=== PATIENT | female | born 1960 | race African-American/Black ===

== ENCOUNTER 2016-06-09 10:20 | Emergency (ER) | payer MEDICAID ==
[~2016-06-09] VITALS: Ht 167.6 cm; Wt 83.9 kg
[~2016-06-09 10:20] MED LIST: ALBUTEROL SULF8.5 GM INH; HYDROCHLOROTH12.5 M2 ORAL; HYDROCHLOROTHIA25 MG ORAL; IBUPROFEN600 MG ORAL; NORCO 5-325 TA1 EACH ORAL; SYNTHROID125 MCG ORAL; SYNTHROID25 MCG ORAL; ZITHROMAX250 MG ORAL
[2016-06-09 10:45] VITALS: BP 145/64
[2016-06-09] MEDS ORDERED: HYDROCHLOROTH12.5 M2 ORAL (10:51)
[2016-06-09] MEDS ORDERED: PREDNISONE20 MG ORAL (10:51)
[2016-06-09] MEDS ORDERED: PROMETHAZINE-D118 ML ORAL (10:51)
[2016-06-09] MEDS ORDERED: ALBUTEROL SULF8.5 GM INH (10:51)
[2016-06-09] MEDS ORDERED: Ipratropium 0.02% Inh Soln 2.5ml UD HHN ONE (11:00)
[2016-06-09] MEDS ORDERED: Albuterol ud Inhalation HHN ONE (11:00)
[2016-06-09 11:25] VITALS: BP 145/64
--- NOTE | 2016-06-09 14:14 | Emergency Room Report ---
History of Present Illness General Chief Complaint: Upper Respiratory Illness Source: Patient Present Illness HPI 55-year-old female presents to ED with cough x4 days. States the cough is productive with greenish phlegm. Notes occasional chills. Denies fever. Denies earache or sore throat. Denies history of asthma or smoking. Denies sick contacts or recent travel. denies any other associated symptoms Allergies: Coded Allergies: HYDROMORPHONE (Verified Allergy, Intermediate, 06/19/14) Patient History Past Medical History: HTN Past Surgical History: none Pertinent Family History: none Social History: Denies: alcohol use, drug use, smoking Now: No Immunizations: UTD Reviewed Nursing Documentation: PMH: Agreed, PSxH: Agreed Nursing Documentation-PMH Past Medical History: No History, Except For Hx Hypertension: Yes Hx Diabetes: No - hypothyroid Review of Systems All Other Systems: negative except mentioned in HPI Physical Exam Vital Signs Date Time Temp Pulse Resp B/P Pulse Ox O2 Delivery O2 Flow Rate FiO2 06/09/16 10:32 99.1 86 18 145/64 98 Room Air 06/09/16 11:15 21 Sp02 EP Interpretation: reviewed, normal General Appearance: no apparent distress, alert, GCS 15, non-toxic Head: normocephalic Eyes: bilateral eye PERRL, bilateral eye normal inspection ENT: hearing grossly normal, normal pharynx, no angioedema, normal voice Neck: normal inspection Respiratory: chest non-tender, lungs clear, normal breath sounds, speaking full sentences Cardiovascular #1: regular rate, rhythm, no edema Gastrointestinal: normal bowel sounds, non tender, soft, non-distended, no guarding, no rebound Rectal: deferred Genitourinary: no CVA tenderness Musculoskeletal: normal inspection Neurologic: alert, oriented x3, responsive, motor strength/tone normal, sensory intact, speech normal Psychiatric: normal inspection Skin: normal inspection Lymphatic: normal inspection Medical Decision Making Diagnostic Impression: Primary Impression: Bronchitis ER Course Hospital Course 55-year-old female presents to ED complaining of cough Differential diagnoses include: URI, bronchitis, asthma/COPD, pneumonia Clinical course Patient placed on stretcher. After initial history and physical I ordered nebulizer treatment. Upon reassessment patient states cough and symptoms have improved. Findings consistent with bronchitis. Diagnosis - bronchitis Stable and discharged home with prescriptions for Rx prednisone, cough syrup, albuterol. Instructed to followup with PMD. Return to ED if symptoms recur or worsen Last Vital Signs Date Time Temp Pulse Resp B/P Pulse Ox O2 Delivery O2 Flow Rate FiO2 06/09/16 11:34 90 19 100 Room Air 21 06/09/16 11:25 99.1 145/64 Status: improved Disposition: HOME, SELF-CARE Condition: Stable Scripts Hydrochlorothiazide* (HYDROCHLOROTHIAZIDE*) 12.5 Mg Capsule 12.5 MG ORAL DAILY, #30 CAP Prov: CHARISSA LIZARRAGA M.D. 06/09/16 D-Methorphan Hb/Prometh Hcl* (PROMETHAZINE-DM SYRUP*) 118 Ml Syrup 5 ML ORAL Q4H Y for For Cough, #118 ML 0 Refills Prov: CHARISSA LIZARRAGA M.D. 06/09/16 Prednisone* (PREDNISONE*) 20 Mg Tablet 40 MG ORAL DAILY, #10 TAB Prov: CHARISSA LIZARRAGA M.D. 06/09/16 Albuterol Sulfate* (ALBUTEROL SULFATE MDI*) 8.5 Gm Hfa.aer.ad 2 PUFF INH Q4H Y for cough/wheezing, #1 EA 0 Refills Prov: CHARISSA LIZARRAGA M.D. 06/09/16 Patient Instructions: Acute Bronchitis, [id number] CHARISSA LIZARRAGA M.D. Jun 09, 2016 14:14
== END 2016-06-09 11:25 | disposition home or self-care (01) ==
LOC: EMR 10:44
DX: J40 Bronchitis, not specified as acute or chronic (principal); I10 Essential (primary) hypertension; E03.9 Hypothyroidism, unspecified; Z88.6 Allergy status to analgesic agent
CPT/HCPCS: 94640; 94664; 99284

== ENCOUNTER 2017-05-16 11:17 | Emergency (ER) | payer BC, MEDICAID ==
[~2017-05-16] VITALS: Ht 167.6 cm; Wt 81.6 kg
[~2017-05-16 11:17] MED LIST changes: +PREDNISONE20 MG ORAL; +PROMETHAZINE-D118 ML ORAL
[2017-05-16] MEDS ORDERED: Tylenol #3 tab (300mg/30mg) ORAL ONE (12:00)
[2017-05-16] MEDS ORDERED: Dexamethasone 4mg/ml vial IM ONE (12:15)
[2017-05-16] MEDS ORDERED: Ketorolac 60mg Inj IM ONE (12:30)
[2017-05-16 12:31] VITALS: BP 157/86
[2017-05-16] MEDS ORDERED: CLINDAMYCIN HC300 MG ORAL (12:38)
[2017-05-16] MEDS ORDERED: ACETAMINOPHEN-1 EAC1 ORAL (12:38)
[2017-05-16] MEDS ORDERED: PREDNISONE20 MG ORAL (12:38)
[2017-05-16 12:57] VITALS: BP 157/86
--- NOTE | 2017-05-19 21:11 | Emergency Room Report ---
History of Present Illness General Chief Complaint: Toothache Source: Patient, Medical Record Present Illness HPI Patient presents with left upper facial redness Patient reports pain to the area with touch She reports that she was recently seen by her dentist Patient also has a specialist however the specialist is not very close and the patient presents here for the pain Patient reports that she is on amoxicillin Denies any trismus Denies any fevers or chills denies any neck pain or photophobia Patient had recent dental extraction left upper dental region Denies any shortness of breath Allergies: Coded Allergies: HYDROMORPHONE (Verified Allergy, Intermediate, 06/19/14) Patient History Past Medical History: see triage record Pertinent Family History: none Reviewed Nursing Documentation: PMH: Agreed, PSxH: Agreed Nursing Documentation-PMH Past Medical History: No History, Except For Hx Hypertension: Yes Hx Diabetes: No - hypothyroid Review of Systems All Other Systems: negative except mentioned in HPI Physical Exam Vital Signs Date Time Temp Pulse Resp B/P (MAP) Pulse Ox O2 Delivery O2 Flow Rate FiO2 05/16/17 11:33 98.8 87 18 157/86 95 Room Air Sp02 EP Interpretation: reviewed, normal General Appearance: no apparent distress Head: normocephalic, atraumatic Eyes: bilateral eye PERRL, bilateral eye EOMI ENT: other - Patient has evidence of swelling to the left upper maxillary region, there is also dental decay and gingival erythema in the region of dental #13/14. Airway is patent no stridor Neck: full range of motion, supple Respiratory: lungs clear, normal breath sounds Cardiovascular #1: regular rate, rhythm Gastrointestinal: soft Musculoskeletal: normal inspection Neurologic: alert, oriented x3, responsive Skin: other - Swelling is noted above Lymphatic: no adenopathy Medical Decision Making Diagnostic Impression: Primary Impression: dental abscess ER Course Patient has evidence of dental cellulitis/abscess, she reports that her twin sister was given steroid shot which helped her and is requesting the same, patient also requesting injection of Toradol Patient discussed regarding the importance of following up with her dental specialist Patient does not appear septic or toxic Antibiotic is changed to clindamycin The patient requires close followup Last Vital Signs Date Time Temp Pulse Resp B/P (MAP) Pulse Ox O2 Delivery O2 Flow Rate FiO2 05/16/17 12:57 98.8 18 157/86 95 Room Air 05/16/17 11:33 87 Status: improved Disposition: HOME, SELF-CARE Condition: Improved Scripts Acetaminophen With Codeine (T#3) (TYLENOL #3 TAB*) Y Tab 1 TAB ORAL Q8H Y for For Pain, #10 TAB Prov: MAGNO EDGAR D.O. 05/16/17 Clindamycin Hcl (CLINDAMYCIN HCL) 300 Mg Capsule 300 MG ORAL THREE TIMES A DAY, #30 CAP Prov: MAGNO EDGAR D.O. 05/16/17 Prednisone* (PREDNISONE*) 20 Mg Tablet 20 MG ORAL BID, #10 TAB Prov: MAGNO EDGAR D.O. 05/16/17 Referrals: NOT CHOSEN IPA/MD,REFERRING Patient Instructions: Dental Abscess, [id number] Additional Instructions: Patient is provided with the discharge instructions notified to follow up with primary doctor in the next 2-3 days otherwise return to the er with any worsening symptoms. Please note that this report is being documented using DRAGON technology. This can lead to erroneous entry secondary to incorrect interpretation by the dictating instrument. MAGNO EDGAR D.O. May 19, 2017 21:11
== END 2017-05-16 12:58 | disposition home or self-care (01) ==
LOC: EMR 12:45
DX: K04.7 Periapical abscess without sinus (principal); I10 Essential (primary) hypertension; E03.9 Hypothyroidism, unspecified
CPT/HCPCS: 96372; 99284; J1100

== ENCOUNTER 2017-07-04 11:05 | Emergency (ER) | payer BC, MEDICAID ==
[~2017-07-04] VITALS: Ht 167.6 cm; Wt 81.6 kg
[~2017-07-04 11:05] MED LIST changes: +ACETAMINOPHEN-1 EAC1 ORAL; +CLINDAMYCIN HC300 MG ORAL
[2017-07-04 12:15] VITALS: BP 156/83
--- NOTE | 2017-07-04 12:22 | Emergency Room Report ---
History of Present Illness General Chief Complaint: Toothache Source: Patient, Medical Record Present Illness HPI 56 yo female patient presents to ER complaining of tooth pain x 4days. Patient reports hx of similar problems, reports seen by dentist for followup. Reports previous symptoms resoled, infection returned to left upper gum, reports drained at home. Requesting pain medication. Denies active draining. Denies fever, chest pain, SOB, abdominal pain. Denies trismus, neck pain. Denies vision changes, ear pain, problems with eating, sore throat. Reports one tooth extraction previous performed, reports she is scheduled to have another removed when infections resolved. Reports side effects with previous Clindamycin use. Allergies: Coded Allergies: HYDROMORPHONE (Verified Allergy, Intermediate, 06/19/14) Patient History Past Medical History: see triage record Reviewed Nursing Documentation: PMH: Agreed; PSxH: Agreed Nursing Documentation-PMH Past Medical History: No History, Except For Hx Hypertension: Yes Hx Diabetes: No - hypothyroid Review of Systems All Other Systems: negative except mentioned in HPI Physical Exam Vital Signs Date Time Temp Pulse Resp B/P (MAP) Pulse Ox O2 Delivery O2 Flow Rate FiO2 07/04/17 11:47 98.4 77 18 156/83 95 Room Air 98.4 Sp02 EP Interpretation: reviewed, normal General Appearance: well appearing, no apparent distress, alert, GCS 15, non- toxic Head: normocephalic, atraumatic Eyes: bilateral eye normal inspection, bilateral eye PERRL ENT: hearing grossly normal, normal pharynx, no angioedema, normal voice, TMs + canals normal, uvula midline, moist mucus membranes, other - <1cm lesion on gum over teeth #11-12, mild edema, no erythema, no drainage, no pus expressible , TTP, dental caries present Neck: full range of motion Respiratory: lungs clear, normal breath sounds, no rhonchi, no respiratory distress, no accessory muscle use, no wheezing, speaking full sentences Cardiovascular #1: regular rate, rhythm, no edema Musculoskeletal: back normal, digits/nails normal, gait/station normal, normal range of motion, non-tender Neurologic: alert, oriented x3, responsive, motor strength/tone normal, sensory intact Psychiatric: mood/affect normal Skin: other - TTP over left cheeck over left upper gum, no erythema, mild edema Lymphatic: no adenopathy Medical Decision Making PA Attestation Dr. Mason is my supervising Physician whom patient management has been discussed with. Diagnostic Impression: Primary Impression: Dental abscess ER Course Pt. presents to the ED c/o dental infection. Ddx considered but are not limited to cellulitis, abscess, dental caries, gingivitis. Does not require imaging at this time. Vital signs: are WNL, pt. is afebrile. Elevated BP, patient has hx of HTN, taking medications. F/u with PCP. ED INTERVENTIONS: CURES reports, no pain medication refills this month. Toradol for pain in ER. Nontoxic appearing, speaking full sentences, no active draining, mild edema, no trismus or vision changes. Patient requesting Ibuprofen for pain. Will provide abx for infection. Prednisone for inflammation. F/u with PCP and dentist for further treatment. DISCHARGE: -Rx provided for Amoxicillin -Rx provided for Ibuprofen. -Rx provided for Prednisone At this time pt. is stable for d/c to home. Patient is resting comfortably, in no acute distress, nontoxic appearing, talking and smiling without difficulty. Will provide printed patient care instructions and any necessary prescriptions. Care plan and follow up instructions have been discussed with the patient prior to discharge. Patient instructed to follow-up with primary care provider in 2 - 3 days. Followup with dentist. Patient questions asked and answered. Patient reports understanding and agreement to treatment plan. ER precautions given. Patient instructed to return to ER immediately for any new or worsening of symptoms including but not limited to fever, worsening of pain symptoms, worsening of erythema, red streaking. Last Vital Signs Date Time Temp Pulse Resp B/P (MAP) Pulse Ox O2 Delivery O2 Flow Rate FiO2 07/04/17 11:47 98.4 77 18 156/83 95 Room Air 98.4 Disposition: HOME, SELF-CARE Condition: Stable Scripts Ibuprofen* (MOTRIN*) 600 Mg Tablet 600 MG ORAL Q8H PRN for For Pain, #30 TAB 0 Refills Prov: Nic Gotti.A. 07/04/17 Prednisone* (PREDNISONE*) 20 Mg Tablet 40 MG ORAL DAILY for 5 Days, #10 TAB Prov: Nic Gotti.A. 07/04/17 Amoxicillin* (AMOXIL*) 500 Mg Capsule 500 MG ORAL EVERY 8 HOURS for 7 Days, #21 CAP Prov: Nic Gotti 07/04/17 Patient Instructions: Dental Abscess, [id number], Dental Caries, [id number] , Dental Extraction Additional Instructions: Followup with primary care provider in 2-3 days. Followup with dentist for close outpatient followup in 2-3 days. Take medications as directed. Patient questions asked and answered. ER precautions given, patient instructed to return to ER immediately for any new or worsening of symptoms. Nic Gotti Jul 04, 2017 12:22
[2017-07-04] MEDS ORDERED: AMOXICILLIN500 MG ORAL (12:29)
[2017-07-04] MEDS ORDERED: PREDNISONE20 MG ORAL (12:29)
[2017-07-04] MEDS ORDERED: ACETAMINOPHEN-1 EAC1 ORAL (12:29)
[2017-07-04] MEDS ORDERED: Ketorolac 30mg Inj IM ONE (12:30)
[2017-07-04] MEDS ORDERED: IBUPROFEN600 MG ORAL (12:35)
[2017-07-04 13:10] VITALS: BP 156/83
== END 2017-07-04 12:45 | disposition home or self-care (01) ==
LOC: EMR 12:17
DX: K04.7 Periapical abscess without sinus (principal); I10 Essential (primary) hypertension
CPT/HCPCS: 96372; 99284; J1885

== ENCOUNTER 2017-07-30 12:40 | Emergency (ER) | payer MEDICAID, MEDICARE ==
[~2017-07-30] VITALS: Ht 167.6 cm; Wt 81.6 kg
[~2017-07-30 12:40] MED LIST changes: +AMOXICILLIN500 MG ORAL
[2017-07-30] MEDS ORDERED: NORVASC10 MG ORAL (13:40)
[2017-07-30] MEDS ORDERED: CYCLOBENZAPRINE10 MG ORAL (14:06)
[2017-07-30] MEDS ORDERED: TRAMADOL HCL50 MG ORAL (14:06)
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
[2017-07-30 15:09] VITALS: BP 132/74
== END 2017-07-30 15:10 | disposition home or self-care (01) ==
LOC: EMR 14:35
DX: M54.5 Low back pain (principal); V43.52XA Car driver injured in collision with other type car in traffic accident, initial encounter; Y92.410 Unspecified street and highway as the place of occurrence of the external cause; I10 Essential (primary) hypertension
CPT/HCPCS: 99284; J8540

== ENCOUNTER 2018-07-12 18:49 | Emergency (ER) | payer MEDICARE, MEDICAID ==
[~2018-07-12] VITALS: Ht 167.6 cm; Wt 81.6 kg
[~2018-07-12 18:49] MED LIST changes: +CYCLOBENZAPRINE10 MG ORAL; +LIDODERM700 M1 TOPIC; +NORVASC10 MG ORAL; +ROBAXIN500 MG PO; +TRAMADOL HCL50 MG ORAL
--- NOTE | 2018-07-12 18:53 | NUR ---
ED Nurse Note: not in the waiting room upon being called for triage
[2018-07-12 19:03] VITALS: BP 153/82
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
[2018-07-12] MEDS ORDERED: LEVOTHYROXINE125 MCG ORAL (19:22)
[2018-07-12] MEDS ORDERED: MUPIROCIN15 GM TOPIC (19:22)
[2018-07-12] MEDS ORDERED: CEPHALEXIN500 MG ORAL (19:22)
[2018-07-12] MEDS ORDERED: Bacitracin Oint UD TOPIC ONE (19:30)
[2018-07-12 19:48] VITALS: BP 153/82
--- NOTE | 2018-07-12 19:48 | NUR ---
ER DISCHARGE NOTE: Patient is cleared to be discharged per Jeanmarie Frye. Pt is A/O x 4 on room air with stable vital signs. Pt was given D/C and prescription instructions and was able to verbalize understanding. Pt's ID band removed. Pt is able to ambulate with steady gait and took all belongings.
== END 2018-07-12 19:48 | disposition home or self-care (01) ==
LOC: EMR 19:38
DX: T25.211A Burn of second degree of right ankle, initial encounter (principal); X08.8XXA Exposure to other specified smoke, fire and flames, initial encounter; Y92.9 Unspecified place or not applicable; R60.0 Localized edema; Z76.0 Encounter for issue of repeat prescription; E03.9 Hypothyroidism, unspecified; I10 Essential (primary) hypertension
CPT/HCPCS: 99282

== ENCOUNTER 2019-06-25 12:53 | Emergency (ER) | payer BC, MEDICAID ==
[~2019-06-25] VITALS: Ht 167.6 cm; Wt 90.7 kg
[~2019-06-25 12:53] MED LIST changes: +CEPHALEXIN500 MG ORAL; +LEVOTHYROXINE125 MCG ORAL; +MUPIROCIN15 GM TOPIC
--- NOTE | 2019-06-25 13:10 | NUR ---
ED Nurse Note: ambulated in to ED due to headache and concern about her high BP. Also c/o swelling on bilateral feet. Pt states that she was running after her dog and she feels like her BP went very high. Breathing normal/even/unlabored. Skin warm/dry/intact. NAD noted. A/OX4.
[2019-06-25] MEDS ORDERED: Metoclopramide 10mg/2ml Inj IVP ONE (13:30)
[2019-06-25] MEDS ORDERED: Acetaminophen 500mg (ES) tab ORAL ONE (13:30)
[2019-06-25 13:36] VITALS: BP 151/78
[2019-06-25 13:51] LABS: BASOPHILS % (AUTO) 0.8 % (0.0-2.0); EOSINOPHILS % (AUTO) 2.9 % (0.0-3.0); HEMATOCRIT 36.8 % (37.0-47.0); MEAN CORPUSCULAR VOLUME 85 FL (80-99); MONOCYTES % (AUTO) 7.3 % (1.0-10.0); NEUTROPHILS % (AUTO) 59.1 % (45.0-75.0); PLATELET COUNT 257 K/UL (150-450); RED BLOOD COUNT 4.35 M/UL (4.20-5.40); RED CELL DISTRIBUTION WIDTH 11.9 % (11.6-14.8); WHITE BLOOD COUNT 6.4 K/UL (4.8-10.8)
[2019-06-25 14:05] LABS: ANION GAP 10 mmol/L (5-15); BLOOD UREA NITROGEN 17 mg/dL (7-18); CARBON DIOXIDE 30 MMOL/L (21-32); CHLORIDE 106 MMOL/L (98-107); POTASSIUM 3.8 MMOL/L (3.5-5.1); SODIUM 146 MMOL/L (136-145)
--- NOTE | 2019-06-25 14:07 | Emergency Room Report ---
History of Present Illness General Chief Complaint: Headache Source: Patient Present Illness HPI 58-year-old female presents ED for evaluation of headache. Started today. States that when her blood pressure gets high she gets a headache. Dull, frontal, 7 out of 10, nonradiating. Denies photophobia or blurry vision. Denies neck stiffness. Denies fevers or chills. Denies cough. States that her legs are also swollen. States she takes losartan/hydrochlorothiazide. Denies chest pain. No other aggravating relieving factors. Denies any other associated symptoms COVID-19 risk:Contact w/high r: No COVID-19 risk:Travel to affect: No Has patient experienced peraza: No Allergies: Coded Allergies: HYDROMORPHONE (Verified Allergy, Intermediate, 06/19/14) Patient History Past Medical History: HTN Past Surgical History: none Pertinent Family History: none Social History: Denies: smoking, alcohol use, drug use Now: No Immunizations: UTD Reviewed Nursing Documentation: PMH: Agreed; PSxH: Agreed Nursing Documentation-PMH Hx Hypertension: Yes Hx Pacemaker: No Hx Asthma: No Hx COPD: No Hx Diabetes: No Hx Cancer: No Hx Gastrointestinal Problems: No Hx Dialysis: No Hx Neurological Problems: No Hx Cerebrovascular Accident: No Hx Seizures: No Review of Systems All Other Systems: negative except mentioned in HPI Physical Exam Vital Signs Date Time Temp Pulse Resp B/P (MAP) Pulse Ox O2 Delivery O2 Flow Rate FiO2 06/25/19 12:59 98.4 96 18 95 Room Air 06/25/19 13:36 151/78 Sp02 EP Interpretation: reviewed, normal General Appearance: no apparent distress, alert, GCS 15, non-toxic Head: normocephalic, atraumatic Eyes: bilateral eye normal inspection, bilateral eye PERRL ENT: hearing grossly normal, normal pharynx, no angioedema, normal voice Neck: full range of motion, supple/symm/no masses Respiratory: chest non-tender, lungs clear, normal breath sounds, speaking full sentences Cardiovascular #1: regular rate, rhythm, no edema Cardiovascular #2: 2+ carotid (R), 2+ carotid (L), 2+ radial (R), 2+ radial (L) , 2+ dorsalis pedis (R), 2+ dorsalis pedis (L) Gastrointestinal: normal bowel sounds, non tender, soft, non-distended, no guarding, no rebound Rectal: deferred Genitourinary: normal inspection, no CVA tenderness Musculoskeletal: back normal, normal range of motion, gait/station normal, non- tender Neurologic: alert, motor strength/tone normal, oriented x3, sensory intact, responsive, speech normal Psychiatric: judgement/insight normal, memory normal, mood/affect normal, no suicidal/homicidal ideation Reflexes: 3+ bicep (R), 3+ bicep (L), 3+ tricep (R), 3+ tricep (L), 3+ knee (R) , 3+ knee (L) Skin: no rash Lymphatic: no adenopathy Medical Decision Making Diagnostic Impression: Primary Impression: Headache Qualified Codes: R51 - Headache Additional Impression: Peripheral edema ER Course Hospital Course 58-year-old F presents ED complaining of b/l LE swelling. c/o headache and high BP Differential diagnoses include: CHF, pedal edema, cellulitis Clinical course Patient placed on stretcher. After initial history and physical I ordered labs , EKG, CXR Chest x-rayno cardiomegaly, no focal consolidation EKGnormal sinus rhythm no acute ischemic changes interpreted by me Patient then stated that she felt anxious and wanted to be discharged. I explained that her labs were not completed yet. States she wants to leave anyways. Patient states she wishes to go home. Understands the risks of leaving. Patient has competency to make her own decisions. Signed AMA form. I. I feel this is a highly complex case requiring extensive working including EKG/Rhythm strip, Xray/CT/US, Blood/urine lab work, repeat exams while in ED, and administration of strong opiates/narcotics for pain control, admission to hospital or close patient follow up. Diagnosis - headache, peripheral edema patient left AMA Labs Test 06/25/19 13:35 White Blood Count 6.4 K/UL (4.8-10.8) Red Blood Count 4.35 M/UL (4.20-5.40) Hemoglobin 12.0 G/DL (12.0-16.0) Hematocrit 36.8 % (37.0-47.0) Mean Corpuscular Volume 85 FL (80-99) Mean Corpuscular Hemoglobin 27.5 PG (27.0-31.0) Mean Corpuscular Hemoglobin Concent 32.5 G/DL (32.0-36.0) Red Cell Distribution Width 11.9 % (11.6-14.8) Platelet Count 257 K/UL (150-450) Mean Platelet Volume 6.6 FL (6.5-10.1) Neutrophils (%) (Auto) 59.1 % (45.0-75.0) Lymphocytes (%) (Auto) 30.0 % (20.0-45.0) Monocytes (%) (Auto) 7.3 % (1.0-10.0) Eosinophils (%) (Auto) 2.9 % (0.0-3.0) Basophils (%) (Auto) 0.8 % (0.0-2.0) Sodium Level 146 MMOL/L (136-145) Potassium Level 3.8 MMOL/L (3.5-5.1) Chloride Level 106 MMOL/L (98-107) Carbon Dioxide Level 30 MMOL/L (21-32) Anion Gap 10 mmol/L (5-15) Blood Urea Nitrogen 17 mg/dL (7-18) Creatinine 1.0 MG/DL (0.55-1.30) Estimat Glomerular Filtration Rate > 60 mL/min (>60) Glucose Level 88 MG/DL (74-106) Calcium Level 10.0 MG/DL (8.5-10.1) Total Bilirubin 0.3 MG/DL (0.2-1.0) Aspartate Amino Transf (AST/SGOT) 14 U/L (15-37) Alanine Aminotransferase (ALT/SGPT) 22 U/L (12-78) Alkaline Phosphatase 116 U/L (46-116) Troponin I 0.000 ng/mL (0.000-0.056) Pro-B-Type Natriuretic Peptide 20 pg/mL (0-125) Total Protein 8.7 G/DL (6.4-8.2) Albumin 4.1 G/DL (3.4-5.0) Globulin 4.6 g/dL Albumin/Globulin Ratio 0.9 (1.0-2.7) EKG Diagnostic Results Rate: normal Rhythm: NSR ST Segments: no acute changes ASA given to the pt in ED: No Rhythm Strip Diag. Results EP Interpretation: yes Rhythm: NSR, no PVC's, no ectopy Chest X-Ray Diagnostic Results Chest X-Ray Diagnostic Results : Chest X-Ray Ordered: Yes # of Views/Limited/Complete: 1 View Indication: Shortness of Breath EP Interpretation: Yes Interpretation: no consolidation, no effusion, no pneumothorax, no acute cardiopulmonary disease Impression: No acute disease Electronically Signed by: Electronically signed by Juan Gould MD Last Vital Signs Date Time Temp Pulse Resp B/P (MAP) Pulse Ox O2 Delivery O2 Flow Rate FiO2 06/25/19 13:36 98.4 80 18 151/78 98 Room Air Status: unchanged Disposition: AGAINST MEDICAL ADVICE Condition: Stable Referrals: Tavares Peralta MD (PCP) Juan Gould MD Jun 25, 2019 14:07
--- NOTE | 2019-06-25 14:07 | NUR ---
ED Nurse Note: notified DR. Sarabia that pt states that she's anxious and HR is increasing to 120s. Per Dr. Sarabia, he will order benadryl. Pt was informed. Pt is now sitting in the gurney, breathing normal/even/unlabored. skin warm/dry/intact. NAD noted.
[2019-06-25] MEDS ORDERED: LORazepam Inj 2mg/ml 1ml IV ONE (14:15)
[2019-06-25] MEDS ORDERED: DiphenhydrAMINE 25mg Tab ORAL ONE (14:15)
--- NOTE | 2019-06-25 14:15 | NUR ---
ED Nurse Note: Pt refused benadryl PO, Dr. Sarabia was notified. Pt ambulated out of the room and requested to leave against medical advice. Dr. Sarabia was notified. Dr. Sarabia at bedside.
--- NOTE | 2019-06-25 14:18 | NUR ---
ED Nurse Note: Dr. Sarabia spoke with the pt regarding the risks and consequences involved in leaving the hospital at this time. Pt signed AMA. IV removed. Pt ambulated out of ED with steady gait. Breathing normal/even/unlabored. Skin warm/dry/intact. NAD noted. A/OX4.
[2019-06-25 14:19] LABS: ALANINE AMINOTRANSFERASE 22 U/L (12-78); ALBUMIN 4.1 G/DL (3.4-5.0); ALBUMIN/GLOBULIN RATIO 0.9 (1.0-2.7); ALKALINE PHOSPHATASE 116 U/L (46-116); ASPARTATE AMINO TRANSFERASE 14 U/L (15-37); BILIRUBIN,TOTAL 0.3 MG/DL (0.2-1.0)
[2019-06-25 14:27] VITALS: BP 151/78
--- NOTE | 2019-06-25 14:42 | Diagnostic Imaging Report ---
. Indication: Shortness of breath Technique: One view of the chest Comparison: none Findings: No acute infiltrates, effusions, or congestion. Tortuous calcified aorta. Normal heart size. Upper mediastinum unremarkable. No significant change Impression: No acute process.
== END 2019-06-25 14:30 | disposition left against medical advice (07) ==
LOC: EMR 13:21
DX: R51 Headache (principal); R60.9 Edema, unspecified; I10 Essential (primary) hypertension; Z88.5 Allergy status to narcotic agent; Z53.29 Procedure and treatment not carried out because of patient's decision for other reasons
CPT/HCPCS: 36415; 71045; 80053; 83880; 84484; 85025; 93005; 96374; 99284; J2765